=== PATIENT | male | born 2000 | race African-American/Black ===

== ENCOUNTER 2023-10-04 17:28 | Emergency (ER) | payer SELFPAY ==
[2023-10-04 18:36] VITALS: BP 129/97; PULSE 76; RESP 18; TEMP 98.2; BMI 21.6
== END 2023-10-04 20:53 | disposition home or self-care (01) ==
LOC: JER 17:28
DX: L50.0 Allergic urticaria (principal); R09.89 Other specified symptoms and signs involving the circulatory and respiratory systems; H02.849 Edema of unspecified eye, unspecified eyelid; Z91.010 Allergy to peanuts
CPT/HCPCS: 93005; 93010; 99283-25

== ENCOUNTER 2024-01-16 16:41 | Emergency (ER) | payer OTHER ==
[2024-01-16 16:46] VITALS: BP 129/83; PULSE 96; RESP 18; TEMP 98; BMI 16.2
== END 2024-01-16 17:35 | disposition left against medical advice (07) ==
LOC: JERFT 16:41 → JER 16:41 → JERFT 17:35
DX: Z76.0 Encounter for issue of repeat prescription (principal)
CPT/HCPCS: 99281-25